=== PATIENT | female | born 1995 | race Caucasian/White ===

== ENCOUNTER 2021-11-06 18:21 | Emergency (ER) | payer SELFPAY ==
[~2021-11-06] VITALS: Ht 162.6 cm; Wt 53.0 kg
[2021-11-06] MEDS ORDERED: MAGNESIUM/ALUMINUM HYDROXIDE/SIMETHICONE 30ML UDC PO STA (19:36)
[2021-11-06] MEDS ORDERED: FAMOTIDINE 20MG/2ML VIAL IV STA (19:36)
[2021-11-06] MEDS ORDERED: VISCOUS LIDOCAINE 2% 15 ML UDC PO STA (19:36)
[2021-11-06] MEDS ORDERED: ONDANSETRON HCL 4MG/2ML INJ IV ONE (19:45)
[2021-11-06 19:47] LABS: BASOPHILS % 0.2 % (0.0-2.0); HEMOGLOBIN. 14.8 g/dL (12.0-16.0); LYMPHOCYTES % 10.5 % (20.0-50.0); MEAN CORPUSCULAR HEMOGLOBIN 30.5 pg (28.0-32.0); MEAN CORPUSCULAR VOLUME 88.6 fL (81.0-99.0); MEAN PLATELET VOLUME 9.7 fl (7.4-10.4); MONOCYTES % 2.6 % (2.0-8.0); NEUTROPHILS % 86.7 % (40.0-76.0); PLATELET 297 x1000/uL (130-400); RED BLOOD CELL COUNT 4.86 mill/uL (4.2-5.4); RED CELL DISTRIBUTION WIDTH 12.9 % (11.6-14.6)
[2021-11-06 19:52] LABS: CHLORIDE 105 mEq/L (98-107)
[2021-11-06 20:03] LABS: B-HCG QUANTITATIVE < 1 mIU/mL (<3)
[2021-11-06] MEDS ORDERED: MORPHINE SULFATE 4 MG/ML CPJ (NOT FOR IM USE) IV ONE ×2 (20:15→21:45)
[2021-11-06] MEDS ORDERED: METOCLOPRAMIDE HCL 10MG/2ML VIAL IV ONE (20:15)
[2021-11-06 20:21] LABS: CLARITY URINE TURBID (CLEAR); COLOR URINE YELLOW (YELLOW); KETONES URINE 3+ (NEGATIVE); LEUKOCYTE ESTERASE URINE 1+ (NEGATIVE); NITRITE URINE NEGATIVE (NEGATIVE); OCCULT BLOOD URINE NEGATIVE (NEGATIVE); PH URINE 8.5 (4.5-8.0); PROTEIN URINE 1+ (NEGATIVE); SPECIFIC GRAVITY URINE 1.026 (1.005-1.030)
[2021-11-06] MEDS ORDERED: KETOROLAC 15MG/ML VIAL IV ONE (21:15)
[2021-11-06 21:37] VITALS: BP 127/85
== END 2021-11-06 22:44 | disposition left against medical advice (07) ==
LOC: ER 18:36
DX: R22.0 Localized swelling, mass and lump, head (principal); H53.8 Other visual disturbances; W01.198A Fall on same level from slipping, tripping and stumbling with subsequent striking against other object, initial encounter; K52.9 Noninfective gastroenteritis and colitis, unspecified; Y93.89 Activity, other specified; Y92.89 Other specified places as the place of occurrence of the external cause; Y99.0 Civilian activity done for income or pay
CPT/HCPCS: 36415; 70450; 74176; 80053; 81003; 81025; 83690; 84702; 85025; 96374; 96375; 96376; 99284; J1885; J2270; J2405; J2765; J3490

== ENCOUNTER 2022-04-20 05:26 | Emergency (ER) | payer MEDICAID ==
[~2022-04-20] VITALS: Ht 149.9 cm; Wt 55.0 kg
[2022-04-20 06:56] LABS: BASOPHILS % 0.2 % (0.0-2.0); HEMATOCRIT. 40.9 % (36.0-48.0); HEMOGLOBIN. 14.1 g/dL (12.0-16.0); LYMPHOCYTES % 12.6 % (20.0-50.0); MEAN CORPUSCULAR HEMOGLOBIN 30.8 pg (28.0-32.0); MEAN PLATELET VOLUME 9.8 fl (7.4-10.4); MONOCYTES % 2.5 % (2.0-8.0); NEUTROPHILS % 84.7 % (40.0-76.0); PLATELET 299 x1000/uL (130-400); RED BLOOD CELL COUNT 4.59 mill/uL (4.2-5.4); RED CELL DISTRIBUTION WIDTH 12.2 % (11.6-14.6)
[2022-04-20] MEDS: ONDANSETRON HCL 4MG/2ML INJ IV STA (07:00)
[2022-04-20] MEDS: SODIUM CHLORIDE 0.9% 1,000 ML IV ONE (07:00)
[2022-04-20 07:05] LABS: CHLORIDE 105 mEq/L (98-107)
[2022-04-20 07:13] LABS: ETHANOL BLOOD < 10 mg/dL
[2022-04-20 07:29] LABS: CLARITY URINE TURBID (CLEAR); COLOR URINE YELLOW (YELLOW); KETONES URINE 1+ (NEGATIVE); LEUKOCYTE ESTERASE URINE NEGATIVE (NEGATIVE); NITRITE URINE NEGATIVE (NEGATIVE); OCCULT BLOOD URINE NEGATIVE (NEGATIVE); PROTEIN URINE TRACE (NEGATIVE); SPECIFIC GRAVITY URINE 1.022 (1.005-1.030)
[2022-04-20 07:38] LABS: HCG SCREEN NEGATIVE
[2022-04-20 07:42] LABS: *AMPHETAMINES SCREEN URINE NEGATIVE (NEGATIVE); *BARBITURATES SCREEN URINE NEGATIVE (NEGATIVE); *BENZODIAZEPINES SCREEN URINE NEGATIVE (NEGATIVE); *COCAINE SCREEN URINE NEGATIVE (NEGATIVE); METHADONE URINE SCREEN NEGATIVE (NEGATIVE); OPIATES URINE SCREEN NEGATIVE (NEGATIVE); PHENCYCLIDINE URINE SCREEN NEGATIVE (NEGATIVE)
[2022-04-20 07:53] LABS: CANNABINOID URINE SCREEN PRESUMTIVE POSITIVE (NEGATIVE)
[2022-04-20 08:18] VITALS: BP 104/57
[2022-04-20] MEDS: HALOPERIDOL LACTATE 5MG/ML VIAL IM SCH (08:44)
== END 2022-04-20 10:47 | disposition left against medical advice (07) ==
LOC: ER 05:26
DX: R10.9 Unspecified abdominal pain (principal); R11.2 Nausea with vomiting, unspecified
CPT/HCPCS: 36415; 80053; 80305; 80320; 81003; 83690; 84703; 85025; 96361; 96372; 96374; 99283; J1630; J2405; J7030; G0480